=== PATIENT | male | born 1955 | race Native Hawaiian/Other Pacific Islander ===

== ENCOUNTER → 2016-11-26 | Day surgery (SDC) | payer OTHER ==
[~2016-11-26] MED LIST: AMLO5 PO; AMLO5TAB96 PO; ASPI81CH CHEW; BENI20TA5 PO; BENI40TA30 PO; LIDOCAINE HCL 1% PF 30 ML VIAL INFIL ONE; LIDOCAINE HCL 1% PF 30 ML VIAL ONE; METF500T PO; METO25TA6 PO; NITR0.4S SL; OMEG100037 PO; SODIUM BICARBONATE 8.4% INJ 50 ML IV ONE; SODIUM BICARBONATE 8.4% INJ 50 ML ONE; ZOCO40TA PO
[2016-11-26 11:29] VITALS: BP 134/83; PULSE 69; RESP 18; TEMP 97.8; O2SAT 96
--- NOTE | 2016-11-26 12:00 | RADRPT ---
EXAM DATE/TIME: 11/26/2016 09:27 [facility] COMPARISON: No previous studies available for comparison. INDICATIONS : Thyroid nodule on the left. MEDICAL HISTORY : Hypercholesterolemia. Hypertension. Gastroesophageal reflux disease. Diabetes. SURGICAL HISTORY : Herniorrhaphy. EGD. ENCOUNTER: Initial ACUITY: 3 days PAIN SCORE: 0/10 LOCATION: Bilateral neck MEASUREMENTS: RIGHT LOBE: 4.0 x 1.4 x 1.4 cm LEFT LOBE: 4.4 x 2.3 x 2.8 cm FINDINGS: RIGHT LOBE: Multiple hypoechoic areas are seen in the right lobe of the thyroid. Several small l ess than 1 cm nodules are evident. LEFT LOBE: There is a large 4 cm cyst in the left lobe containing debris. This occupies most of the left lobe of the thyroid. ISTHMUS: Normal in size without focal abnormality. CONCLUSION: Large cyst left lobe thyroid associated with scattered smaller cysts and nodules in t he right lobe. The largest cyst on the left will be aspirated. Rustam Tripp MD FACR on November 26, 2016 at 11:57 Board Certified Radiologist. This report was verified electronically.
--- NOTE | 2016-11-26 12:02 | RADRPT ---
EXAM DATE/TIME: 11/26/2016 09:40 [facility] COMPARISON: No previous studies available for comparison. INDICATIONS : Left thyroid nodule. MEDICAL HISTORY : Hypercholesterolemia. Hypertension. Gastroesophageal reflux disease. Diabetes. SURGICAL HISTORY : Herniorrhaphy. EGD. ENCOUNTER: Initial ACUITY: 3 days PAIN SCORE: 0/10 LOCATION: Left neck ORGAN: Left thyroid lobe SPECIMENS: Three fine needle aspirate(s) submitted for pathologic evaluation. DEVICE: 22 gauge needle Post procedure scanning reveals no hematoma or other complication. The possibility does exist that the tissue obtained will be non-diagnostic. If the sample is non-antonieta gnostic a repeat biopsy or surgical biopsy may need to be performed. TECHNIQUE: 1. Ultrasound guidance for needle biopsy. 2. Needle biopsy. The risks, benefits, and alternatives to ultrasound guided needle biopsy were explained to the patien t in detail including the risk of bleeding and infection. Written and verbal informed consent was ob tained. With the patient on the ultrasound table, images were obtained. Overlying skin was prepped and drape d in the usual sterile fashion and Lidocaine was utilized as a local anesthetic. Under direct ultrasound guidance the cyst in the left lobe was aspirated and submitted for pathologic evaluation. Fluid is dark and viscous and appears to be old hemorrhage. The patient tolerated the procedure well and left the ultrasound suite in stable condition. CONCLUSION: Uncomplicated ultrasound guided needle aspiration and biopsy. Pathology is pending.. Rustam Tripp MD FACR on November 26, 2016 at 11:59 Board Certified Radiologist. This report was verified electronically.
== END | disposition home or self-care (01) ==
LOC: HRAD 09:00 → MERGE 09:00
DX: E04.1 Nontoxic single thyroid nodule (principal); E78.00 Pure hypercholesterolemia, unspecified; I10 Essential (primary) hypertension; K21.9 Gastro-esophageal reflux disease without esophagitis; E11.9 Type 2 diabetes mellitus without complications
CPT/HCPCS: 10022; 76536; 76942; 88172; 88173

== ENCOUNTER → 2016-11-26 | Outpatient (CLI) | payer OTHER ==
[~2016-11-26] MED LIST changes: -LIDOCAINE HCL 1% PF 30 ML VIAL INFIL ONE; -LIDOCAINE HCL 1% PF 30 ML VIAL ONE; -SODIUM BICARBONATE 8.4% INJ 50 ML IV ONE; -SODIUM BICARBONATE 8.4% INJ 50 ML ONE
[2016-11-26 11:18] LABS: FREE T3 2.65 PG/ML (2.18-3.98); FREE T4 1.22 NG/DL (0.76-1.46)
== END ==
LOC: CLAB 10:16
DX: E03.9 Hypothyroidism, unspecified (principal)
CPT/HCPCS: 36415; 84439; 84443; 84481

== ENCOUNTER → 2016-12-03 | Day surgery (SDC) | payer OTHER ==
[~2016-12-03] MED LIST changes: +LIDOCAINE HCL 1% PF 30 ML VIAL ONE; +SODIUM BICARBONATE 8.4% INJ 50 ML ONE
--- NOTE | 2016-12-03 11:40 | RADRPT ---
EXAM DATE/TIME: 12/03/2016 10:27 [facility] COMPARISON: No previous studies available for comparison. INDICATIONS : Palpable mass. MEDICAL HISTORY : Hypercholesterolemia. Hypertension. Gastroesophageal reflux disease. Diabetes. SURGICAL HISTORY : Hemorrhoidectomy. Herniorrhaphy. EGD. ENCOUNTER: Subsequent ACUITY: 1 week PAIN SCORE: 10 LOCATION: Left neck FLUID: Total volume of 40 cc of cloudy, red fluid was removed. Fluid was sent to lab for ordered studies. Post procedure scanning reveals no hematoma or other complication. TECHNIQUE: 1. Ultrasound guidance for needle aspiration. 2. Aspiration. The risks, benefits, and alternatives to ultrasound guided aspiration were explained to the patient i n detail including the risk of bleeding and infection. Written and verbal informed consent was obtai belgica. Under direct ultrasound guidance 40 cc of cloudy hemorrhagic fluid were removed and sent to lab for c ytology. Followup ultrasound reveals minimal residual mass suggesting a colloid cyst. CONCLUSION: Uncomplicated ultrasound guided aspiration. Cytology is pending. Rustam Tripp MD FACR on December 03, 2016 at 11:30 Board Certified Radiologist. This report was verified electronically.
== END | disposition home or self-care (01) ==
LOC: HRAD 10:06
PROVIDERS: ATTEND Radiology Body Imaging
DX: E04.1 Nontoxic single thyroid nodule (principal); E78.00 Pure hypercholesterolemia, unspecified; I10 Essential (primary) hypertension; K21.9 Gastro-esophageal reflux disease without esophagitis
CPT/HCPCS: 10160; 76942

== ENCOUNTER → 2017-03-03 | Outpatient (CLI) | payer OTHER ==
[~2017-03-03] MED LIST changes: -LIDOCAINE HCL 1% PF 30 ML VIAL ONE; -SODIUM BICARBONATE 8.4% INJ 50 ML ONE
[2017-03-03 08:51] LABS: ANION GAP 6 MEQ/L (5-15); AST (GOT) 17 U/L (15-37); BICARBONATE 30.9 MEQ/L (21.0-32.0); BLOOD UREA NITROGEN 14 MG/DL (7-18); CHLORIDE 102 MEQ/L (98-107); GLOMERULAR FILTRATION RATE 70 ML/MIN (>89); GLUCOSE,FASTING 109 MG/DL (74-99); POTASSIUM 4.2 MEQ/L (3.5-5.1); SODIUM (NA) 139 MEQ/L (136-145)
[2017-03-03 08:55] LABS: ALKALINE PHOSPHATASE 63 U/L (45-117); ALT (GPT) 22 U/L (12-78); HDL CHOLESTEROL 42.4 MG/DL (40.0-60.0); LDL CHOLESTEROL 72 MG/DL (0-99)
[2017-03-03 09:03] LABS: CREATINE KINASE 87 U/L (39-308)
[2017-03-03 16:57] LABS: HEMOGLOBIN A1a 0.8 %; HEMOGLOBIN A1b 1.9 %; HEMOGLOBIN Ao 84.7 %; HEMOGLOBIN LA1C 1.9 %; HEMOGLOBIN P3 3.9 %
== END ==
LOC: CLAB 08:06
DX: E78.5 Hyperlipidemia, unspecified (principal); Z79.899 Other long term (current) drug therapy
CPT/HCPCS: 36415; 80053; 80061; 82550; 83036

== ENCOUNTER → 2017-03-04 | Outpatient (CLI) | payer OTHER ==
[~2017-03-04] MED LIST changes: +IOHEXOL 350 MG/ML 10 ML VIAL (for RAD DIAG) IV ONE; +METOPROLOL TARTRATE 5 MG/5 ML VIAL ONE; +NITROGLYCERIN 0.4 MG SL 25 TABS/BTL SL ONE
[2017-03-04 14:18] VITALS: BP 145/80; PULSE 75
[2017-03-04 14:23] VITALS: BP 140/82; PULSE 68
[2017-03-04 14:30] VITALS: BP 139/75; PULSE 66
[2017-03-04 14:35] VITALS: BP 138/74; PULSE 66
[2017-03-04 14:40] VITALS: BP 140/72; PULSE 70
[2017-03-04 14:45] VITALS: BP 138/73; PULSE 73
--- NOTE | 2017-03-04 17:15 | RADRPT ---
EXAM DATE/TIME: 03/04/2017 14:36 [facility] Corrected on: March 14, 2017; Corrected Ordering MD to Rustam Tripp MD [facility] COMPARISON: CT THORAX W/O CONTRAST, February 25, 2016, 8:22. INDICATIONS : Cardiac disease. IV CONTRAST: 80 cc Omnipaque 350 (iohexol) IV RADIATION DOSE: 17.18 CTDIvol (mGy) MEDICAL HISTORY : Hypertension. SURGICAL HISTORY : None. ENCOUNTER: Initial ACUITY: 1 day PAIN SCALE: 0/10 LOCATION: Bilateral chest TECHNIQUE: Volumetric scanning was obtained through the heart. Images were acquired on a multislice multiple ro w detector helical scanner timed for acquisition during peak arterial contrast. Images were reconstr ucted using a retrospective gating algorithm including single sector and multi-sector algorithms at m ultiple phases of the cardiac cycle. Images were interpreted using a combination of 2D and 3D visual ization modes including curved planar reformation, thin slab maximum intensity projection and volume rendering. Using automated exposure control and adjustment of the mA and/or kV according to patient size, radiation dose was kept as low as reasonably achievable to obtain optimal diagnostic quality im ages. FINDINGS: VESSEL ANALYSIS: DOMINANCE: The coronary system is right coronary dominance the RCA is small. LEFT MAIN: Left main is patent without calcification or stenosis. LAD: Rapidly bifurcates into a large ramus with large diagonals. There is both intrinsic and extrins ic calcified plaque in the ramus. There is no significant plaquing in the LAD. CIRCUMFLEX: Circumflex branches early from a left main. Extrinsic proximal calcific plaque is present witho ut soft component. RCA: The RCA is small there is small focal area of calcification. Minimal intrinsic soft plaque in the proximal descending portion of the right coronary artery. Ventricular size is appropriate without pericardial effusion. Stable small 1 cm nodule is seen in the left lower lobe. CONCLUSION: 1. Small right coronary in this right coronary dominance individual minimal calcified extrinsic plaqu e proximal descending portion with minimal soft component. 2. Short left main with extrinsic calcific plaque no soft component not felt to be significant. 3. Early bifurcating LAD with the large ramus containing both intrinsic and extrinsic plaque. There is soft tissue component approximately as well thought to be significant. 4. Findings have been discussed with the patient. Rustam Tripp MD FACR on March 04, 2017 at 16:47 Board Certified Radiologist. This report was verified electronically Board Certified Radiologist. This report was verified electronically.
== END ==
LOC: HRAD 13:41
PROVIDERS: ATTEND Radiology Body Imaging
DX: I25.10 Atherosclerotic heart disease of native coronary artery without angina pectoris (principal)
CPT/HCPCS: 75574; Q9967

== ENCOUNTER 2017-03-23 10:00 | Day surgery (SDC) | payer OTHER ==
[~2017-03-23] VITALS: Ht 167.6 cm; Wt 78.1 kg
[2017-03-23] VITALS (10 sets, daily range): BP systolic 107–155; BP diastolic 72–90; PULSE 55–74; RESP 16–19; TEMP 97.8–98; O2SAT 96–99
[~2017-03-23 10:00] MED LIST changes: -AMLO5 PO; -ASPI81CH CHEW; -BENI20TA5 PO; -IOHEXOL 350 MG/ML 10 ML VIAL (for RAD DIAG) IV ONE; -METF500T PO; -METO25TA6 PO; -METOPROLOL TARTRATE 5 MG/5 ML VIAL ONE; -NITR0.4S SL; -NITROGLYCERIN 0.4 MG SL 25 TABS/BTL SL ONE
[2017-03-23] MEDS ORDERED: ASPIRIN 325 MG TAB PO SCH (10:30)
[2017-03-23] MEDS ORDERED: NS 1000P @30 MLS/HR (KVO) IV SCH (10:30)
[2017-03-23] MEDS ORDERED: AMLO5 PO (10:47)
[2017-03-23] MEDS ORDERED: NITR0.4S SL (10:47)
[2017-03-23] MEDS ORDERED: ZOCO40TA PO (10:47)
[2017-03-23] MEDS ORDERED: BENI20TA5 PO (10:47)
[2017-03-23] MEDS ORDERED: ASPI81CH CHEW (10:47)
[2017-03-23] MEDS ORDERED: METF500T PO (10:47)
[2017-03-23] MEDS ORDERED: METO25TA6 PO (10:47)
[2017-03-23 10:57] LABS: AUTOMATED NEUTROPHIL # 4.1 TH/MM3 (1.8-7.7); BASOPHIL % 0.5 % (0.0-2.0); EOSINOPHIL # 0.6 TH/MM3 (0-0.4); EOSINOPHIL % 8.9 % (0.0-4.0); HEMATOCRIT 43.5 % (39.0-51.0); HEMO FLAGS DIFF FINAL; LYMPH % 26.1 % (9.0-44.0); LYMPHOCYTE # 1.8 TH/MM3 (1.0-4.8); MEAN CELL VOLUME 82.3 FL (80.0-100.0); MEAN CORPUSCULAR HEMOGLOBIN 27.6 PG (27.0-34.0); MEAN CORPUSCULAR HGB CONC 33.5 % (32.0-36.0); MONO % 6.1 % (0.0-8.0); NEUT % 58.4 % (16.0-70.0); PLATELET COUNT 277 TH/MM3 (150-450); RED BLOOD COUNT 5.29 MIL/MM3 (4.50-5.90); RED CELL DISTRIBUTION WIDTH 13.9 % (11.6-17.2); WHITE BLOOD COUNT 7.1 TH/MM3 (4.0-11.0)
[2017-03-23 11:03] LABS: APTT (PATIENT) 27.1 SEC (24.3-30.1); PROTHROMBIN TIME - PATIENT 10.5 SEC (9.8-11.6)
[2017-03-23 11:19] LABS: BICARBONATE 31.1 MEQ/L (21.0-32.0); POTASSIUM 3.6 MEQ/L (3.5-5.1)
[2017-03-23] MEDS ORDERED: IOHEXOL 350 MG/ML 100 ML BTL (for Cath Lab) OTHER ONE (12:11)
[2017-03-23] MEDS ORDERED: IOHEXOL 350 MG/ML 50 ML BTL (for Cath Lab) OTHER ONE (12:11)
[2017-03-23] MEDS ORDERED: HEPARIN-NS/PF INJ 500 ML ONE (12:17)
[2017-03-23] MEDS ORDERED: diphenhydrAMINE HCL 50 MG/ML VIAL ONE (12:21)
[2017-03-23] MEDS ORDERED: MIDAZOLAM HCL 2 MG/2 ML VIAL ONE (12:22)
--- NOTE | 2017-03-23 12:25 | EKG ---
Date Performed: 03/23/2017 Time Performed: 10:45:04 PTAGE: 61 years EKG: Sinus bradycardia Extensive T wave changes are nonspecific Borderline ECG PREVIOUS TRACING : 05/13/2009 09.04 No significant change from previous tracing noted. DOCTOR: Flaco Baptiste Interpretating Date/Time 03/23/2017 12:24:17
[2017-03-23] MEDS ORDERED: HEPARIN SODIUM - IV 10,000 UNITS/10 ML VIAL ONE ×2 (12:26→14:28)
[2017-03-23] MEDS ORDERED: PRASUGREL 10 MG TAB ONE (13:28)
[2017-03-23] MEDS ORDERED: BIVALIRUDIN 250 MG VIAL ONE ×2 (13:29→14:33)
[2017-03-23] MEDS ORDERED: VERAPAMIL HCL 5 MG/2 ML VIAL ONE (14:31)
[2017-03-23] MEDS: SODIUM CHLOR 0.9% 1000 ML INJ 1,000 ML IV SCH (16:00)
--- NOTE | 2017-03-23 16:36 | MA ---
cc: RUSS KENNEDY M.D., WAFIK F. M.D. DATE 03/23/2017 Cardiac catheterization / intervention DATE OF 1955 PROCEDURE 1. Left heart catheterization. 2. Coronary arteriogram. 3. Left ventriculogram. 4. Percutaneous transluminal balloon angioplasty followed by stenting of a distal 99% left circumflex lesion using 3.0 x 15 mm drug-eluting Resolute stent reducing it 0% disease residual, followed by stenting of the proximal left circumflex 85-90% lesion using a 3.5 x 15 mm drug-eluting Resolute stent reducing it to 0% residual angiographically. 5. Percutaneous transluminal rotational atherectomy of a calcified mid 90% right coronary artery disease using a 1.5 bur reducing it to 60% residual then stenting using a 3.0 x 15 mm drug-eluting Resolut stent reducing the stenosis to 0% angiographically. 6. Intravascular sound evaluation post stenting of the left circumflex. 7. Intravascular sound evaluation post stenting of the RCA. 8. Right femoral arteriogram. 9. Right femoral arteriotomy site closure using a StarClose device. [employer]STATE PORTFOLIO MANAGER Olimpia Wolff MD TOMATO PASTE MAKER Lidia Richard, RT. INDICATIONS Progressive unstable angina with a CT angiogram of his coronaries revealing tight mid RCA and distal circumflex disease. Because of his persistent symptoms despite beta-blockers and nitrates he was advised to proceed with cardiac catheterization and possible intervention as needed. EQUIPMENT USED 6-Lithuanian short sheath. 0.035 J guidewire. 6-Lithuanian JL-4, JR-4 and pigtail diagnostic catheters. 6-Lithuanian XB 3.5 guide with no side holes. A 0.014 ATW long marker wire. A 2.5 x 12 mm Quantum noncompliant balloon. A 3.00 x 15 mm drug-eluting Resolute stent x2. A 3.5 x 15 mm drug-eluting Resolute stent. A 2.0 x 12 mm NC Euphora balloon used to attempt to cross the RCA lesion however, it did not. A 1.5 x 6 mm Sprinter balloon, also did not cross the right coronary lesion. A 1.5 rotation atherectomy bur. Intravascular ultrasound catheter from [employer]. PROCEDURE DETAILS After obtaining informed consent the right groin was prepped in the usual sterile fashion. 15 cc of 1% lidocaine were used for local anesthesia. Using the modified Seldinger technique, right femoral artery was cannulated and a 6-Lithuanian short sheath was inserted in the right femoral artery. Using the above-mentioned diagnostic catheters selective coronary angiograms were performed. This was followed by left ventriculogram performed in the WERNER view with 30 degree angle. Then this was followed by revascularization of the left circumflex, then revascularization of the RCA of which separate descriptions will follow. At the end of the procedure right femoral system was injected revealing no significant disease and a StarClose device was applied achieving adequate hemostasis. The patient tolerated the procedure well without acute complication at the time of dictation. CARDIAC CATHETERIZATION FINDINGS HEMODYNAMIC RESULTS Aortic pressure was 140/80 mmHg. Mean aortic pressure was 100 mmHg. There was no gradient across aortic valve. Left ventricle end-diastolic pressure was 24 mmHg. CORONARIES Left main artery was left sinus of Valsalva. This had minimal irregularities of less than 5%. Left circumflex artery branched from the left main artery and this was a codominant vessel. It gave a high OM branch that had an ostial 20% then diffuse 30-40% proximal to mid disease. The circumflex in the proximal to mid area there was an 85-90% concentric disease then it trifurcated to an AV groove and the circumflex proper and a PLV branch. The PLV branch had diffuse irregularities of 20-30%. The AV groove had also diffuse irregularities of less than 20%. The circumflex had 20-30% disease just distal to the trifurcation and then 99% occlusion, and distally it had diffuse plaque ranging between 20-30% and then it gave a PLV and PDA arteries with mild diffuse irregularities of less than 20%. Left anterior descending artery branched from the left main artery, had mild diffuse irregularities of 20-30%. It gave diagonal septal branches with mild luminal irregularities of less than 20%. Right coronary was from right sinus of Valsalva. This had a 50% proximal disease and 95-98% mid calcified RCA disease. Distally it gave a PDA and a minute PLV artery with mild diffuse regularities of less than 20%. A mid RV branch had mild luminal irregularities of less than 20%. Left ventriculogram showed normal wall motion, normal systolic function. Ejection fraction visual estimate is around 65%. CONCLUSION OF THE CARDIAC CATHETERIZATION 1. Minimal irregularities of the left main. 2. Mild disease of the left anterior descending artery. 3. Tight mid to distal circumflex disease and significant concentric proximal / mid circumflex disease, stented in this procedure. 4. Tight heavily calcified mid RCA disease dealt with rotational atherectomy and stenting in this procedure. 5. Codominant left circumflex / RCA system. 6. Normal left ventricle systolic function. 7. Elevated left ventricular end-diastolic pressure. It was decided then to proceed with revascularization of the left circumflex. I did discuss the anatomy with Mr. Eugene and offered him three-vessel bypass versus percutaneous intervention with stenting and he opted to proceed with stenting. REVASCULARIZATION OF THE LEFT CIRCUMFLEX An XB 3.5 6-Lithuanian guide was advanced cannulating the left main. Then a 0.014 ATW long marker wire was advanced and placed in the distal PLV branch of the left circumflex. Then a 2.5 x 12 mm of Quantum balloon was advanced and one inflation in the distal disease up to 12 atmospheres reducing the stenosis to 40% residual. The same balloon was used to inflate the proximal / mid disease with one inflation up to 14 atmospheres reducing the stenosis to 40% residual after which the distal lesion was stented using a 3.0 x 15 mm drug-eluting stent inflated to 14 atmospheres. The proximal / mid lesion was stented using a 3.5 x 15 mm drug-eluting Resolute stent inflated to 14 atmospheres reducing both stenosis to 0 / -10 residual. Intravascular ultrasound evaluation post stenting revealed both stent were well opposed with no distal or proximal edge dissection in either. The minimum diameter of the distal stent was 2.8 mm and the minimum diameter of the proximal stent was 3.4 mm and good symmetry and we decided to accept these results. The wire was then withdrawn and the guide and selective angiographic pictures in / WERNER caudal and GERRI caudal were performed revealing excellent angiographic results with MIGUELITO grade III flow in the distal portion of the vessel. REVASCULARIZATION OF THE RIGHT CORONARY ARTERY An FR 4.0 6-Lithuanian guide with no side holes was advanced cannulating the right coronary artery. Then the same 0.014 ATW long marker wire was advanced and placed in the PDA of the RCA. However I could not cross the mid lesion with the same 2.5 x NC Quantum balloon or with a new balloon that was a 2.0 x 12 NC Euphora or even with a 1.5 x 6 Sprinter compliant balloon after which I decided to proceed with rotation atherectomy because of evidence of calcification. A Rota C floppy wire was advanced and placed in the PDA of the RCA and the ATW wire was then withdrawn. One rotational atherectomy run with a 1.5 bur for 10 seconds with RPMs running between 132-143,000 per minute was performed reducing the stenosis to 50-60% residual, after which a 3.0 x 15 mm drug-eluting Resolute stent was deployed achieving good results with 0% residual angiographic stenosis. Intravascular ultrasound evaluation of the lesion revealed that the stent was well deployed with no distal or proximal edge dissection and good symmetry with minimal diameter of 2.9 mm and it was decided to accept these results. The wire was then withdrawn in the guide and selective angiographic pictures both GERRI cranial and WERNER cranial views were obtained revealing excellent angiographic results with MIGUELITO grade III flow distally. Mr. Eugene tolerated the procedure well without acute complication at the time of dictation. MD SHA Gonzalez/SACHIN /3:33 PM /3:53 PM
[2017-03-23] MEDS ORDERED: ONDANSETRON HCL 4 MG/2 ML VIAL ONE (18:35)
[2017-03-23] MEDS: glipiZIDE 5 MG TAB PO SCH (21:00)
[2017-03-23] MEDS ORDERED: ATORVASTATIN 80 MG TAB PO SCH (21:00)
[2017-03-23] MEDS ORDERED: DEXTROSE 50% IN WATER 50 ML VIAL(D50) IV PUSH PRN (23:30)
[2017-03-23] MEDS ORDERED: GLUCAGON 1 MG/ML VIAL OTHER PRN (23:30)
[2017-03-24] VITALS (9 sets, daily range): BP systolic 133–143; BP diastolic 77–78; PULSE 16–72; RESP 16; TEMP 98.2–98.5; O2SAT 97
[2017-03-24] MEDS: SODIUM CHLOR 0.9% 1000 ML INJ 1,000 ML IV SCH (01:00)
[2017-03-24 06:25] LABS: AUTOMATED NEUTROPHIL # 6.4 TH/MM3 (1.8-7.7); BASOPHIL % 0.2 % (0.0-2.0); EOSINOPHIL # 0.3 TH/MM3 (0-0.4); HEMATOCRIT 39.8 % (39.0-51.0); HEMO FLAGS DIFF FINAL; LYMPH % 15.5 % (9.0-44.0); LYMPHOCYTE # 1.3 TH/MM3 (1.0-4.8); MEAN CORPUSCULAR HGB CONC 34.1 % (32.0-36.0); MONO % 6.3 % (0.0-8.0); PLATELET COUNT 256 TH/MM3 (150-450); RED BLOOD COUNT 4.85 MIL/MM3 (4.50-5.90); RED CELL DISTRIBUTION WIDTH 14.2 % (11.6-17.2); WHITE BLOOD COUNT 8.6 TH/MM3 (4.0-11.0)
[2017-03-24 06:47] LABS: BICARBONATE 25.4 MEQ/L (21.0-32.0)
[2017-03-24] MEDS ORDERED: MEDIUM DOSE INSULIN NOVOLOG SUPPLEMENTAL SCALE SQ SCH (07:00)
[2017-03-24] MEDS ORDERED: POTASSIUM CHLORIDE 20 MEQ CONTROLLED RELEASE TAB PO ONE (08:00)
[2017-03-24] MEDS: glipiZIDE 5 MG TAB PO SCH (08:07)
[2017-03-24] MEDS ORDERED: amLODIPine BESYLATE 5 MG TAB PO SCH (09:00)
[2017-03-24] MEDS ORDERED: LOSARTAN 50 MG TAB PO SCH (09:00)
[2017-03-24] MEDS ORDERED: ASPIRIN EC 81 MG TABEC PO SCH (09:00)
[2017-03-24] MEDS ORDERED: PRASUGREL 10 MG TAB PO SCH (09:00)
--- NOTE | 2017-03-24 13:55 | EKG ---
Date Performed: 03/24/2017 Time Performed: 06:10:16 PTAGE: 61 years EKG: Sinus rhythm Right ventricular hypertrophy Extensive ST-T changes may be due to hypertrophy and/or ischemia Prince red to prior tracing no significant change Abnormal ECG PREVIOUS TRACING : 03/23/2017 17.32 DOCTOR: Mirtha Naik Interpretating Date/Time 03/24/2017 13:49:02
--- NOTE | 2017-03-24 13:56 | EKG ---
Date Performed: 03/23/2017 Time Performed: 17:32:36 PTAGE: 61 years EKG: Sinus bradycardia Extensive ST-T changes are nonspecific Compared to prior tracing no signi ficant change Borderline ECG PREVIOUS TRACING : 03/23/2017 10.45 DOCTOR: Mirtha Naik Interpretating Date/Time 03/24/2017 13:49:19
--- NOTE | 2017-03-25 13:26 | CATHPROC ---
[facility] HIS Report Study Information Study Number Admission Scheduled Start Study Start [id number] Mar 23 2017 10:00AM 03/23/2017 Mar 23 2017 11:55AM [place] Service Cardiac Catheterization Admit Source Facility Department Other [facility] - Mess Attendant Physician and Clinical Staff Initial MD Estrada, Tarun Project Accountant Kenny Blanca RN Other cathlab, cathlab Other Siobhan Blackman BSRN Recorder Tatiana Golden,FINANCE VICE PRESIDENT TECH2 Scrub Lidia Ray RCIS TECH2 Procedures Performed Procedure Location (Site) Vessel Name Coronary Angiograms LCA Left Coronary Coronary Angiograms RCA Right Coronary Drug Eluting Inflatio CIRC Dist CIRC Drug Eluting Inflatio CIRC Mid CIRC Drug Eluting Inflatio RCA Mid Right Coronary IVUS RCA Right Coronary IVUS CIRC Mid CIRC L Heart Cath LV Gram-hand inj. LV LV Ventricle PTCA CIRC Dist CIRC PTCA CIRC Mid CIRC PTCA ADD ON'S Rotablator RCA Mid Right Coronary Wire insertion Fem Art (right) Femoral Art Equipment Time Fish Machine Feeder Description Size Mfg Part Number Used/Scraped STARCLOSE, VASCULAR CLOSER [id number] 15:07 [employer] FR 6 Used SYSTEM *[id number] TRANSDUCER, TRUWAVE [id number] 12:20 BELCHER BYRD * Used W/STOCKCOCK *[id number] 14:36 BOSTON SCIENTIFIC ADVANCER * [id number] Used BALLOON, 2.5 12[place] [id number] 13:34 BOSTON SCIENTIFIC 2.5 12MM Used QUANTUM APEX MR *[id number] 14:36 [employer]ON SCI[employer] CATHETER, FR1.5 ROTA-LINK FR 1.5 Used *[id number] 64606-532 14:28 [employer]ON SCI[employer] WIRE, ROTA-WIRE FLOPPY 330CM 330CM Used *[id number] *[id number] [phone] *8243010 [id number] *[id number] PIGTAIL ANG. 145 INFINITI [id number] CATHETER *[id number] *[id number] [phone] *[id number] [id number] 12:20 Mashups INDUSTRIES PACK, CCL CUSTOM * Used *[id number] 12:20 Mashups PACER PEN, SKIN DUAL W/ RULER * Used *[id number] [id number] 14:26 MEDTRONIC BALLOON, 1.5 X 6MM SPRINTER 6MM Used *[id number] BALLOON, 2.0 X 12MM NC [id number] 14:13 MEDTRONIC 12MM Used EUPHORA *[id number] STENT, 3.0 15 RESOLUTE [id number] 13:45 MEDTRONIC 3.0 15 Used INTEGRITY RX *[id number] STENT, 3.0 15 RESOLUTE [id number] 14:53 MEDTRONIC 3.0 15 Used INTEGRITY RX *[id number] STENT, 3.5 15 RESOLUTE [id number] 13:51 MEDTRONIC 3.5 15 Used INTEGRITY RX *[id number] [id number] 13:27 Brille24 MEDICAL 30 ABAD INDEFLATOR Used *1464882 [id number] 12:20 [email or web address] SHEATH, FR6.5 PRELUDE 11CM FR 6.5 038ACT Used *8943090 [id number] 12:20 [email or web address] WIRE, 3MMJ .035 180CM 180CM Used *1216951 [id number] 12:20 NAMIC MANIFOLD, 4 PORT * Used *[id number] 12:20 NYCOMED OMNIPAQUE, 350 MG, 150ML 150ML [id number] Used [id number] 12:20 [employer] BLANKET,WARM AIR CCL * Used *[id number] CATHETER, SAUK-SUIATTLE EYE QAGAN TAYAGUNGIN [id number] 13:56 [employer]OL[employer]O Used IMAGING *7644016 Equipment Model, Serial, Lot Number and Expiration Data Description Model Number Serial Number Lot Number Expiration Date BALLOON, 2.0 X 12MM NC [id number] 10-14-2018 EUPHORA BALLOON, 2.5 12MM NC QUANTUM [id number] 05-02-2018 APEX MR CATHETER, SAUK-SUIATTLE EYE QAGAN TAYAGUNGIN [id number] 11-30-2018 IMAGING STENT, 3.0 15 RESOLUTE [id number] 12-19-2018 INTEGRITY RX STENT, 3.0 15 RESOLUTE [id number] 09-06-2018 INTEGRITY RX STENT, 3.5 15 RESOLUTE [id number] 07-27-2018 INTEGRITY RX WIRE, ROTA-WIRE FLOPPY 330CM [id number] 05-28-2017 History: Current Medications Medication Dosage/Unit Route Frequency Last Date/Time Taken ASA NORVASC Glucophage NTG SL Statins (any) History: Allergies Allergy Reaction Hydrochlorothiazide Itching Lisinopril Itching Sulfa Itching History: Risk Factors Family History of Hypertension Dyslipidemia Previous [place] Previous Heart Failure Premature CAD Yes Yes Yes No No Prior Valve Prior PCI Prior CABG Surgery No No No Cerebrovascular Peripheral Artery Chronic Lung On Dialysis Diabetes Disease Disease Disease No No No No Yes History: Symptoms/Diagnosis Selection Items Chest pain History: Stress Tests Stress or Imaging Studies Performed Yes Standard Exercise Stress Test No Stress Echo No Stress Test SPECT No Stress Test CMR Stress Test CMR Result Yes Indeterminant Cardiac CTA Coronary Calcium Score No No History: Other Disease Selection Items HTN History: Other Current Smoker No Labs Hgb (g/dl) Hct (%) RBC (MIL/MM3) WBC (l/cumm) Platelets (thousands) 12.00-18.00 37.00-55.00 4.80-6.20 4.80-10.80 140.00-450.00 14.6 43.5 5.2 7.1 277 Glucose (mg/dl) BUN (mg/dl) Creatinine (mg/dl) BUN:Creatinine (1:x) 60.00-110.00 8.00-20.00 0.10-9.00 10.00-20.00 114 13 0.9 14.4 Na (meq/l) K (meq/l) Cl (meq/l) CO2 (mmol/L) Ca (mg/dl) 138.00-146.00 3.80-5.10 101.00-111.00 23.00-30.00 9.00-10.50 140 3.6 103 31.1 8.6 PT (sec) PTT (sec) INR (PTT:PT) 9.40-11.40 25.10-32.70 0.50-2.00 10.5 27.1 1 Medication Medication Total Dose (Bolus/Oral) Medication Total Dosage/Unit 1% XYLOCAINE 20 mL ANGIOMAX BOLUS 11 mL BENADRYL 25 mg EFFIENT 60 mg FENTANYL 100 mcg HEPARIN 1000 units NTG (IC) 1050 mcg Medications (Bolus/Oral) Medication Time Given Dosage/Unit Administered By Reason BENCHAYORYL 03/23/2017 1:08:14 PM 25 mg Kenny Blanca 25 mg BENADRYL given in lab by Kenny Blanca RN in Left Antecubital via Peripheral IV. Ordered by Tarun Armstrong. FENTANYL 03/23/2017 1:09:15 PM 50 mcg Kenny Blanca 50 mcg FENTANYL given in lab by Kenny Blanca RN in Left Antecubital via Peripheral IV. Ordered by Tarun Estrada. FENTANYL 03/23/2017 1:10:29 PM 50 mcg Kenny Blanca 50 mcg FENTANYL given in lab by Kenny Blanca RN in Left Antecubital via Peripheral IV. Ordered by Tarun Estrada. 1% XYLOCAINE 03/23/2017 1:10:33 PM 20 mL Tarun Estrada 20 mL 1% XYLOCAINE given in lab by Tarun Estrada in Right Groin via Subcutaneous. Ordered by Tarun Estrada. HEPARIN 03/23/2017 1:14:00 PM 1000 units Tarun Estrada 1000 units HEPARIN given in lab by Tarun Estrada in Right Groin via Intra-arterial. Ordered by Tarun [place]ataya. NTG (IC) 03/23/2017 1:16:34 PM 50 mcg Tarun Estrada 50 mcg NTG (IC) given in lab by Tarun Estrada in Right Groin via Intra-coronary. Ordered by Tarun Estrada. EFFIENT 03/23/2017 1:29:31 PM 60 mg Kenny Blanca 60 mg EFFIENT given in lab by Kenny Blanca RN in Per mouth via Oral. Ordered by Tarun Estrada. ANGIOMAX BOLUS 03/23/2017 1:32:48 PM 11 mL Kenny Blanca 11 mL ANGIOMAX BOLUS given in lab by Kenny Blanca RN in Left Antecubital via Peripheral IV. Ordere d by Tarun Estrada. NTG (IC) 03/23/2017 1:43:10 PM 150 mcg Tarun Estrada 150 mcg NTG (IC) given in lab by Tarun Estrada in Right Groin via Intra-coronary. Ordered by Tarun Estrada. NTG (IC) 03/23/2017 1:55:28 PM 100 mcg Tarun Estrada 100 mcg NTG (IC) given in lab by Tarun Estrada in Right Groin via Intra-coronary. Ordered by Tarun Estrada. NTG (IC) 03/23/2017 2:01:01 PM 100 mcg Tarun Estrada 100 mcg NTG (IC) given in lab by Tarun Estrada in Right Groin via Intra-coronary. Ordered by Tarun Estrada. NTG (IC) 03/23/2017 2:11:55 PM 100 mcg Tarun Estrada 100 mcg NTG (IC) given in lab by Tarun Estrada in Right Groin via Intra-coronary. Ordered by Tarun Estrada. NTG (IC) 03/23/2017 2:19:24 PM 100 mcg Tarun Estrada 100 mcg NTG (IC) given in lab by Tarun Estrada in Right Groin via Intra-coronary. Ordered by Tarun Estrada. NTG (IC) 03/23/2017 2:51:56 PM 100 mcg Tarun Estrada 100 mcg NTG (IC) given in lab by Tarun Estrada in Right Groin via Intra-coronary. Ordered by Tarun Estrada. NTG (IC) 03/23/2017 2:56:23 PM 150 mcg Tarun Estrada 150 mcg NTG (IC) given in lab by Traun Estrada in Right Groin via Intra-coronary. Ordered by Tarun Estrada. NTG (IC) 03/23/2017 2:59:15 PM 100 mcg Tarun Estrada 100 mcg NTG (IC) given in lab by Tarun Estrada in Right Groin via Intra-coronary. Ordered by Tarun Estrada. NTG (IC) 03/23/2017 3:02:25 PM 100 mcg Tarun Estrada 100 mcg NTG (IC) given in lab by Tarun Estrada in Right Groin via Intra-coronary. Ordered by Tarun Estrada. Medication (Drip) Medication Time Given Dosage/Unit Concentration/Unit Diluent (ml) Solution ANGIOMAX DRIP 03/23/2017 1:34:14 PM 1.68 mg/kg/hr 250 mg 50 NaCl .9 1.68 mg/kg/hr ANGIOMAX DRIP given in lab by Kenny Blanca RN in Left Antecubital via Peripheral IV. Pump/Drip Flow = 26 ml/hr using NaCl .9 with a concentration of 250 mg in 50 ml. Ordered by Tarun Estrada. IV Solutions 03/23/2017 12:18:25 PM 0 mL (IV) 500 NaCl .9 Patient arrived on IV Solutions given by cathlab, cathlab in Left Antecubital via Peripheral IV. Pump /Drip Flow = 20 ml/hr using NaCl .9. Ordered by Tarun Estrada. IV Solutions 03/23/2017 3:00:01 PM 0 mL (IV) 500 NaCl .9 IV Solutions given in lab by Kenny Blanca RN in Left Antecubital via Peripheral IV. Pump/Drip Flow = 200 ml/hr using NaCl .9. Ordered by Tarun Estrada. Initial Case Assessment Cardiovascular HR NIBP 66 171/107 Edema Present Skin color Skin None Normal Warm Dry Circulatory - Right Pulses Dorsalis Pedis Femoral 2 2 Scale (0,1,2,3,4,d) Circulatory - Left Pulses Dorsalis Pedis Femoral 2 2 Scale (0,1,2,3,4,d) Neurological State Oriented to time-place- Alert Moves all extremities person Respiration - General Respiration Rate SpO2 (%) (B/min) 12 100 Final Case Assessment Cardiovascular HR NIBP 55 137/69 Edema Present Skin color Skin None Normal Warm Dry Circulatory - Right Pulses Dorsalis Pedis Femoral 2 2 Scale (0,1,2,3,4,d) Circulatory - Left Pulses Dorsalis Pedis Femoral 2 2 Scale (0,1,2,3,4,d) Neurological State Oriented to time-place- Alert Moves all extremities person Respiration - General Respiration Rate SpO2 (%) (B/min) 18 97 Chronological Log Time Study Chronological Log 12:11:10 Patient arrived via Bed. 12:11:11 Patient Name, D.O.B, / Armband Verified By R.N. 12:11:12 Consent signed by the physician and the patient and verified by the Mess Attendant staff. 12:18:11 Pre-op and post- op instructions given; patient acknowledges understanding of instructions. Vitals capture started with the following parameters, Patient=Adult, Interval=5 min, Initial Pr knqbyr=608 mmHg, 12:18:13 Deflation Rate=5 mmHg 12:18:17 Patient has been NPO for More than 6Hrs. 12:18:18 Skin Breakdown- 12:18:19 Patient Warmer Placed on the Table. 12:18:21 Annie Prominences Protected 12:18:24 A # 20 IV was noted in the Antecubital (left). Grade = 0 Patient arrived on IV Solutions given by cathlab, cathlab in Left Antecubital via Peripheral IV . Pump/Drip Flow = 20 12:18:25 ml/hr using NaCl .9. Ordered by Tarun Estrada. 12:18:26 History and physical on the chart or being dictated. 12:19:26 HR=64 bpm, DIWY=139/107 mmhg, QtI6=065.0 %, Resp=12 B/min, Pain=0, Kristi=10, Powers=2 12:20:49 Reference ECG taken Assessment: Initial Case, HR=66 BPM, ASZV=447/107 mmhg, Edema=None, Color=Normal, Skin = Warm, Dry Right Pulses: Oscar Ped=2, Femoral=2 12:20:52 Left Pulses: Oscar Ped=2, Femoral=2 Neurological: State=Alert, Ox3, VALENCIA Respiration: Resp=12 B/min, VsG8=439 % 12:23:50 OI=404 bpm, YAAT=623/102 mmhg, SpO2=99.0 %, Resp=15 B/min, Pain=0, Kristi=10, Powers=2 12:28:47 HR=71 bpm, NZDM=651/101 mmhg, SpO2=99.0 %, Resp=18 B/min, Pain=0, Kristi=10, Powers=2 12:29:25 Bilateral groins prepped with 2% chlorhexidine, and with a 3 min. waiting time. 12:32:53 Pressure channel 1 zeroed. 12:33:52 HR=63 bpm, CWGE=488/99 mmhg, SxL4=834.0 %, Resp=13 B/min, Pain=0, Kristi=10, Powers=2 12:38:49 HR=67 bpm, UTLW=390/97 mmhg, SpO2=97.0 %, Resp=13 B/min, Pain=0, Kristi=10, Powers=2 12:43:50 HR=62 bpm, ZPPN=185/100 mmhg, YpR9=771.0 %, Resp=16 B/min, Pain=0, Kristi=10, Powers=2 12:48:51 HR=65 bpm, EVJK=693/93 mmhg, SpO2=99.0 %, Resp=15 B/min, Pain=0, Kristi=10, Powers=2 12:53:52 HR=68 bpm, AZUW=593/105 mmhg, SpO2=99.0 %, Resp=15 B/min, Pain=0, Kristi=10, Powers=2 12:58:51 HR=66 bpm, TNZQ=362/95 mmhg, SpO2=99.0 %, Resp=14 B/min 13:03:52 HR=66 bpm, RTJP=785/97 mmhg, SpO2=99.0 %, Resp=15 B/min, Pain=0, Kristi=10, Powers=2 13:08:14 25 mg BENADRYL given in lab by Kenny Blanca, JOSE in Left Antecubital via Peripheral IV. Or dered by Tarun Estrada. Time Out. Correct patient, correct procedure,correct physician, ,power injector not loaded with contrast with surgical 13:08:47 team present. Time Out Concurred by , individual staff in procedure 13:09:15 50 mcg FENTANYL given in lab by Kenny Blanca, JOSE in Left Antecubital via Peripheral IV. O rdered by Tarun Estrada. 13:09:17 Case Start 13:09:39 HR=78 bpm, PVJO=039/104 mmhg, SpO2=99.0 %, Resp=10 B/min, Pain=0, Kristi=10, Powers=2 13:10:29 50 mcg FENTANYL given in lab by Kenny Blanca RN in Left Antecubital via Peripheral IV. O rdered by Tarun Estrada. 13:10:33 20 mL 1% XYLOCAINE given in lab by Tarun Estrada in Right Groin via Subcutaneous. Ordered by Tarun Estrada. 13:12:26 Access site was Right Femoral Artery. 13:12:36 A SHEATH, FR6.5 PRELUDE 11CM FR 6.5 was advanced into the Fem Art (right) using the Modifie d Seldinger technique. 13:13:55 HR=80 bpm, MOMH=813/101 mmhg, SpO2=97.0 %, Resp=11 B/min, Pain=0, Kristi=10, Powers=2 13:14:00 1000 units HEPARIN given in lab by Tarun Estrada in Right Groin via Intra-arterial. Ordere d by Tarun Estrada. A JL 4.0 INFINITI CATHETER FR 6 was advanced over a wire. OMNIPAQUE, 350 MG, 150ML 150ML was us ed for 13:14:54 injections. 13:16:34 50 mcg NTG (IC) given in lab by Tarun sEtrada in Right Groin via Intra-coronary. Ordered b y Tarun Estrada. Recorded Pressure: Ao, HR=77, Condition=Condition 1 13:16:44 (Aorta) Ao 148/79/107 13:17:49 The LCA was injected and visualized at various angles. OMNIPAQUE, 350 MG, 150ML 150ML used . 13:18:58 HR=72 bpm, GTES=621/83 mmhg, SpO2=96.0 %, Resp=12 B/min, Pain=0, Kristi=10, Powers=2 13:19:28 Catheter was removed A JR 4.0 INFINITI CATHETER FR 6 was advanced over a wire. OMNIPAQUE, 350 MG, 150ML 150ML was us ed for 13:21:09 injections. 13:23:13 The RCA was injected and visualized at various angles. OMNIPAQUE, 350 MG, 150ML 150ML used . 13:23:55 HR=71 bpm, QNDU=346/83 mmhg, SpO2=96.0 %, Resp=13 B/min, Pain=0, Kristi=10, Powers=2 13:24:07 Catheter was removed A PIGTAIL ANG. 145 INFINITI CATHETER FR 6 was advanced over a wire. OMNIPAQUE, 350 MG, 150ML 15 0ML was 13:24:19 used for injections. Recorded Pressure: LV, HR=71, Condition=Condition 1 13:25:26 (Left Ventricle) LV 147/13 13:25:46 The LV was manually injected with 10 cc's and visualized. OMNIPAQUE, 350 MG, 150ML 150ML us ed. Recorded Pressure: LV, Ao, HR=73, Condition=Condition 1 13:26:10 (Left Ventricle) LV 141/2/26, (Aorta) Ao 146/78/108 13:26:37 Catheter was removed 13:27:12 OMNIPAQUE, 350 MG, 150ML 150ML and 30 ABAD INDEFLATOR added. 13:29:31 HR=79 bpm, TJGT=605/98 mmhg, SpO2=95.0 %, Resp=13 B/min, Pain=0, Kristi=10, Powers=2 13:29:31 60 mg EFFIENT given in lab by Kenny Blanca, JOSE in Per mouth via Oral. Ordered by Tarun Estrada. A XB 3.5 GUIDE CATHETER FR 6 was advanced over a wire. OMNIPAQUE, 350 MG, 150ML 150ML was used for 13:30:44 injections. 11 mL ANGIOMAX BOLUS given in lab by Kenny Blanca, JOSE in Left Antecubital via Peripheral IV. Ordered by Sean 13:32:48 Tarun. 13:33:57 HR=69 bpm, FEJR=200/88 mmhg, SpO2=98.0 %, Resp=15 B/min, Pain=0, Kristi=10, Powers=2 13:34:04 A WIRE, ATW MARKER 300CM 300CM was inserted via Fem Art (right). 1.68 mg/kg/hr ANGIOMAX DRIP given in lab by Kenny Blanca, JOSE in Left Antecubital via Peripher al IV. Pump/Drip Flow 13:34:14 = 26 ml/hr using NaCl .9 with a concentration of 250 mg in 50 ml. Ordered by Tarun Estrada. 13:35:29 Interventional wire has crossed the lesion A BALLOON, 2.5 12MM NC QUANTUM APEX MR 2.5 12MM was inserted over WIRE, ATW MARKER 300CM 300CM via the 13:38:36 CIRC Dist. 13:38:58 HR=69 bpm, JJZW=263/83 mmhg, SpO2=97.0 %, Resp=19 B/min, Pain=0, Kristi=10, Powers=2 A BALLOON, 2.5 12MM NC QUANTUM APEX MR 2.5 12MM over a WIRE, ATW MARKER 300CM 300CM in the CIRC Dist 13:39:57 was inflated using a 30 ABAD INDEFLATOR at 12 abad for 10 sec. A BALLOON, 2.5 12MM NC QUANTUM APEX MR 2.5 12MM over a WIRE, ATW MARKER 300CM 300CM in the CIRC Mid 13:42:40 was inflated using a 30 ABAD INDEFLATOR at 14 abad for 30 sec. 13:43:10 150 mcg NTG (IC) given in lab by Tarun Estrada in Right Groin via Intra-coronary. Ordered by Tarun Estrada. 13:43:59 HR=76 bpm, AKLY=954/76 mmhg, SpO2=94.0 %, Resp=19 B/min 13:44:10 Balloon Removed. A STENT, 3.0 15 RESOLUTE INTEGRITY RX 3.0 15 was advanced through a JR 4.0 INFINITI CATHETER FR 6 over a 13:46:22 WIRE, ATW MARKER 300CM 300CM. 13:47:04 A implantable was deployed using a 30 ABAD INDEFLATOR at 12 atmospheres for 10 seconds in th e CIRC Dist. 13:47:40 Delivery device removed 13:48:58 HR=71 bpm, ECGV=128/76 mmhg, SpO2=92.0 %, Resp=15 B/min, Pain=0, Kristi=10, Powers=2 13:51:27 Activated Clotting Time Drawn A STENT, 3.5 15 RESOLUTE INTEGRITY RX 3.5 15 was advanced through a XB 3.5 GUIDE CATHETER FR 6 over a 13:52:16 WIRE, ATW MARKER 300CM 300CM. A STENT, 3.5 15 RESOLUTE INTEGRITY RX 3.5 15 was deployed using a 30 ABAD INDEFLATOR at 14 atmos pheres for 13:53:51 12 seconds in the CIRC Mid. 13:54:01 HR=73 bpm, ZXDC=261/67 mmhg, SpO2=92.0 %, Resp=16 B/min, Pain=0, Kristi=10, Powers=2 13:54:52 Delivery device removed 13:55:28 100 mcg NTG (IC) given in lab by Tarun Estrada in Right Groin via Intra-coronary. Ordered by Tarun Estrada. 13:55:49 ACT (Normal Range 90-180) = 265 13:56:41 An CATHETER, SAUK-SUIATTLE EYE QAGAN TAYAGUNGIN IMAGING was advanced through the lesion. Images saved onto IVUS hard drive 13:59:00 HR=69 bpm, DLFG=202/65 mmhg, SpO2=92 %, Resp=12 B/min, Pain=0, Kristi=10, Powers=2 14:00:01 IVUS in progress using CATHETER, SAUK-SUIATTLE EYE QAGAN TAYAGUNGIN IMAGING 14:00:11 IVUS catheter removed 14:00:24 Wire removed 14:01:01 100 mcg NTG (IC) given in lab by Tarun Estrada in Right Groin via Intra-coronary. Ordered by Tarun Estrada. 14:02:41 A WIRE, 3MMJ .035 180CM 180CM was inserted via Fem Art (right). 14:02:50 Catheter was removed 14:03:59 HR=72 bpm, VIOE=367/66 mmhg, SpO2=91.0 %, Resp=14 B/min, Pain=0, Kristi=10, Powers=2 A JR 4.0 GUIDE CATHETER FR 6 was advanced over a wire. OMNIPAQUE, 350 MG, 150ML 150ML was used for 14:04:45 injections. 14:07:34 A WIRE, ATW MARKER 300CM 300CM was inserted via Fem Art (right). 14:08:58 HR=65 bpm, HXSZ=976/68 mmhg, SpO2=93 %, Resp=16 B/min, Pain=0, Kristi=10, Powers=2 14:09:01 Interventional wire has crossed the lesion A BALLOON, 2.5 12MM NC QUANTUM APEX MR 2.5 12MM was inserted over WIRE, ATW MARKER 300CM 300CM via the 14:09:49 RCA Mid. 14:11:55 100 mcg NTG (IC) given in lab by Tarun Estrada in Right Groin via Intra-coronary. Ordered by Tarun Estrada. 14:12:51 Balloon Removed. 14:14:03 HR=70 bpm, URLG=047/55 mmhg, SpO2=91.0 %, Resp=17 B/min, Pain=0, Kristi=10, Powers=2 14:14:22 A BALLOON, 2.0 X 12MM NC EUPHORA 12MM was inserted over WIRE, ATW MARKER 300CM 300CM via th e RCA Mid. 14:15:01 Activated Clotting Time Drawn 14:19:00 HR=66 bpm, SZJN=570/59 mmhg, SpO2=92.0 %, Resp=14 B/min, Pain=0, Kristi=10, Powers=2 14:19:24 100 mcg NTG (IC) given in lab by Tarun Estrada in Right Groin via Intra-coronary. Ordered by Tarun Estrada. 14:19:39 Balloon Removed. 14:20:40 ACT (Normal Range 90-180) = 278 14:23:16 Balloon Removed. 14:24:01 HR=74 bpm, PHYN=979/62 mmhg, SpO2=94.0 %, Resp=16 B/min, Pain=0, Kristi=10, Powers=2 14:25:07 A BALLOON, 1.5 X 6MM SPRINTER 6MM was inserted over WIRE, ATW MARKER 300CM 300CM via the RC A Mid. 14:29:03 HR=69 bpm, BIEH=620/55 mmhg, SpO2=96.0 %, Resp=15 B/min, Pain=0, Kristi=10, Powers=2 14:30:37 The previous wire was exchanged for a WIRE, ROTA-WIRE FLOPPY 330CM 330CM. 14:33:59 HR=65 bpm, IYFO=361/71 mmhg, SpO2=96.0 %, Resp=17 B/min, Pain=0, Kristi=10, Powers=2 14:37:02 A ADVANCER * was advanced throuogh the catheter into the RCA Mid. 14:39:01 HR=70 bpm, EEMY=865/74 mmhg, SpO2=97.0 %, Resp=20 B/min, Pain=0, Kristi=10, Powers=2 14:44:41 HR=75 bpm, UESK=939/66 mmhg, SpO2=98.0 %, Resp=19 B/min, Pain=0, Kristi=10, Powers=2 A CATHETER, FR1.5 ROTA-LINK FR 1.5 was advanced through the JR 4.0 GUIDE CATHETER FR 6 over a W BRADLEY, ROTA- 14:46:54 WIRE FLOPPY 330CM 330CM. After placement in the RCA Mid the rotoblator was set from 149,000 rpm to 136,000 rpm and was passed 10 times through the lesion. 14:48:55 Wire removed 14:48:58 A WIRE, ATW MARKER 300CM 300CM was inserted via Fem Art (right). 14:49:07 HR=55 bpm, GMTR=552/58 mmhg, SpO2=97.0 %, Resp=15 B/min, Pain=0, Kristi=10, Powers=2 14:50:46 Interventional wire has crossed the lesion 14:51:56 100 mcg NTG (IC) given in lab by Tarun Estrada in Right Groin via Intra-coronary. Ordered by Tarun Estrada. 14:52:23 Activated Clotting Time Drawn 14:54:02 HR=54 bpm, APXX=986/55 mmhg, SpO2=95.0 %, Resp=15 B/min, Pain=0, Kristi=10, Powers=2 A STENT, 3.0 15 RESOLUTE INTEGRITY RX 3.0 15 was advanced through a JR 4.0 GUIDE CATHETER FR 6 over a WIRE, 14:55:27 ATW MARKER 300CM 300CM. 14:56:23 150 mcg NTG (IC) given in lab by Tarun Estrada in Right Groin via Intra-coronary. Ordered by Tarun Estrada. A STENT, 3.0 15 RESOLUTE INTEGRITY RX 3.0 15 was deployed using a 30 ABAD INDEFLATOR at 14 atmos pheres for 14:57:43 11 seconds in the RCA Mid. 14:58:34 Delivery device removed 14:59:03 HR=55 bpm, VMTJ=246/55 mmhg, SpO2=95.0 %, Resp=13 B/min, Pain=0, Kristi=10, Powers=2 14:59:15 100 mcg NTG (IC) given in lab by Tarun Estrada in Right Groin via Intra-coronary. Ordered by Tarun Estrada. IV Solutions given in lab by Kenny Blanca RN in Left Antecubital via Peripheral IV. Pump/Dri p Flow = 200 ml/hr using 15:00:01 NaCl .9. Ordered by Tarun Estrada. 15:00:40 An CATHETER, SAUK-SUIATTLE EYE QAGAN TAYAGUNGIN IMAGING was advanced through the lesion. Images saved onto IVUS hard drive 15:01:53 IVUS in progress using CATHETER, SAUK-SUIATTLE EYE QAGAN TAYAGUNGIN IMAGING 15:01:54 IVUS catheter removed 15:02:25 100 mcg NTG (IC) given in lab by Tarun Estrada in Right Groin via Intra-coronary. Ordered by Tarun Estrada. 15:02:45 Wire removed 15:03:49 Catheter was removed 15:04:00 HR=64 bpm, UISQ=704/69 mmhg, SpO2=95.0 %, Resp=17 B/min, Pain=0, Kristi=10, Powers=2 15:05:57 An injection in the Fem Art (right) was made through the SHEATH, FR6.5 PRELUDE 11CM FR 6.5. 15:06:57 Catheter(s) removed without difficulty 15:09:09 STARCLOSE, VASCULAR CLOSER SYSTEM FR 6 placement in the Fem Art (right) 15:09:40 HR=60 bpm, NWAC=472/77 mmhg, SpO2=97.0 %, Resp=14 B/min, Pain=0, Kristi=10, Powers=2 15:10:46 ANGIOMAX COMPLETE 15:14:06 HR=55 bpm, HEZE=221/75 mmhg, SpO2=98.0 %, Resp=12 B/min, Pain=0, Kristi=10, Powers=2 15:15:25 Case End 15:19:11 HR=55 bpm, CFWZ=693/69 mmhg, SpO2=97.0 %, Resp=18 B/min, Pain=0, Kristi=10, Powers=2 15:20:21 Sterile dressing applied to site Assessment: Final Case, HR=55 BPM, RCJF=400/69 mmhg, Edema=None, Color=Normal, Skin = Warm, Dry Right Pulses: Oscar Ped=2, Femoral=2 15:21:38 Left Pulses: Oscar Ped=2, Femoral=2 Neurological: State=Alert, Ox3, VALENCIA Respiration: Resp=18 B/min, SpO2=97 % 15:22:13 Vitals capture stopped. 15:22:27 No case complications noted. 15:22:28 Cine recording checked. 15:22:31 Bedside Report will be given. 15:22:34 Implantable Device card placed in patient's chart. 15:22:39 A Left Heart Cath was performed. 15:22:44 Clinical correlaton risk stratification. 15:27:07 Patient moved to stretcher End Study - Contrast Media Used In Study Contrast Total Opened (mL) Total Used (mL) Total Wasted (mL) Omnipaque 225 225 0 End Study - Maximum Contrast Load Max Contrast Load (mL) 430.1 End Study - Radiation Exposure Fluoro Time (minutes) 23.8 End Study - Patient Disposition Complications Transferred To Interventional Outcome No Telemetry Bed successful
== END 2017-03-24 10:32 | disposition home or self-care (01) ==
LOC: HDOC 10:00 → HDIC 10:02 → HCIS 15:33 → HDOC 03-24 10:32
PROVIDERS: ATTEND Internal Medicine Interventional Cardiology
DX: I25.110 Atherosclerotic heart disease of native coronary artery with unstable angina pectoris (principal); I38 Endocarditis, valve unspecified; I10 Essential (primary) hypertension; E78.5 Hyperlipidemia, unspecified; E11.9 Type 2 diabetes mellitus without complications; Z01.818 Encounter for other preprocedural examination
CPT/HCPCS: 80048; 82550; 82948; 84132; 85002; 85025; 85610; 85730; 92928; 92933; 92978; 92979; 93005; 93458; C1714; C1725; C1753; C1760; C1769; C1874; C1887; C1893; G0269; J0583; J1200; J1644; J2250; J2405; J3010; J7030; 92934; Q9967

== ENCOUNTER → 2017-05-24 | Outpatient (CLI) | payer OTHER ==
[~2017-05-24] MED LIST changes: +AMLO5 PO; -AMLO5TAB96 PO; +ARTIDRO3 EACH EYE; +ASPI81CH CHEW; +BENI20TA5 PO; -BENI40TA30 PO; +METF500T PO; +METO25TA6 PO; +NITR0.4S SL; -OMEG100037 PO; +PRAS10TA PO; +ROSU40 PO; +VISI0.053 EACH EYE
[2017-05-24 08:43] LABS: ALT (GPT) 45 U/L (12-78); ANION GAP 9 MEQ/L (5-15); AST (GOT) 30 U/L (15-37); BICARBONATE 27.3 MEQ/L (21.0-32.0); BLOOD UREA NITROGEN 19 MG/DL (7-18); CHLORIDE 104 MEQ/L (98-107); GLOMERULAR FILTRATION RATE 59 ML/MIN (>89); GLUCOSE,FASTING 131 MG/DL (74-99); POTASSIUM 3.7 MEQ/L (3.5-5.1); SODIUM (NA) 140 MEQ/L (136-145)
[2017-05-24 08:46] LABS: ALKALINE PHOSPHATASE 76 U/L (45-117); CREATINE KINASE 132 U/L (39-308); LDL CHOLESTEROL 48 MG/DL (0-99); TOTAL BILIRUBIN ADULT 0.6 MG/DL (0.2-1.0)
== END ==
LOC: CLAB 08:01
PROVIDERS: ATTEND Internal Medicine Interventional Cardiology
DX: E78.2 Mixed hyperlipidemia (principal); I10 Essential (primary) hypertension; Z79.899 Other long term (current) drug therapy
CPT/HCPCS: 36415; 80053; 80061; 82550

== ENCOUNTER → 2017-06-09 | Outpatient (CLI) | payer OTHER ==
[2017-06-09 10:14] LABS: ANION GAP 6 MEQ/L (5-15); BICARBONATE 27.6 MEQ/L (21.0-32.0); BLOOD UREA NITROGEN 16 MG/DL (7-18); CHLORIDE 105 MEQ/L (98-107); GLOMERULAR FILTRATION RATE 62 ML/MIN (>89); GLUCOSE,FASTING 115 MG/DL (74-99); POTASSIUM 3.8 MEQ/L (3.5-5.1); SODIUM (NA) 139 MEQ/L (136-145)
[2017-06-09 16:33] LABS: HEMOGLOBIN A1a 0.8 %; HEMOGLOBIN A1b 2.2 %; HEMOGLOBIN Ao 83.7 %; HEMOGLOBIN LA1C 2.2 %; HEMOGLOBIN P3 4.2 %
== END ==
LOC: CLAB 08:44
PROVIDERS: ATTEND Internal Medicine Interventional Cardiology
DX: E11.65 Type 2 diabetes mellitus with hyperglycemia (principal); I10 Essential (primary) hypertension; Z79.899 Other long term (current) drug therapy
CPT/HCPCS: 36415; 80048; 83036

== ENCOUNTER → 2017-09-27 | Outpatient (CLI) | payer OTHER ==
[~2017-09-27] MED LIST changes: +ASPI-516 CHEW; -ASPI81CH CHEW; -BENI20TA5 PO; +METO1TAB42 PO; -METO25TA6 PO; +OLME1TAB PO; -ZOCO40TA PO
[2017-09-27 08:37] LABS: HEMATOCRIT 43.1 % (39.0-51.0); MEAN CELL VOLUME 80.7 FL (80.0-100.0); MEAN CORPUSCULAR HEMOGLOBIN 27.5 PG (27.0-34.0); MEAN CORPUSCULAR HGB CONC 34.1 % (32.0-36.0); PLATELET COUNT 285 TH/MM3 (150-450); RED BLOOD COUNT 5.34 MIL/MM3 (4.50-5.90); RED CELL DISTRIBUTION WIDTH 14.3 % (11.6-17.2); REVIEW FLAG FINAL; WHITE BLOOD COUNT 7.2 TH/MM3 (4.0-11.0)
[2017-09-27 09:01] LABS: ANION GAP 7 MEQ/L (5-15); AST (GOT) 19 U/L (15-37); BICARBONATE 28.5 MEQ/L (21.0-32.0); BLOOD UREA NITROGEN 19 MG/DL (7-18); CHLORIDE 103 MEQ/L (98-107); GLOMERULAR FILTRATION RATE 56 ML/MIN (>89); GLUCOSE,FASTING 104 MG/DL (74-99); SODIUM (NA) 138 MEQ/L (136-145)
[2017-09-27 09:05] LABS: ALKALINE PHOSPHATASE 79 U/L (45-117); ALT (GPT) 25 U/L (12-78); CREATINE KINASE 83 U/L (39-308); HDL CHOLESTEROL 53.1 MG/DL (40.0-60.0); LDL CHOLESTEROL 37 MG/DL (0-99); TOTAL BILIRUBIN ADULT 0.8 MG/DL (0.2-1.0)
[2017-09-27 16:25] LABS: HEMOGLOBIN A1b 2.2 %; HEMOGLOBIN Ao 82.6 %; HEMOGLOBIN LA1C 2.2 %; HEMOGLOBIN P3 4.4 %
== END ==
LOC: CLAB 08:18
DX: E78.5 Hyperlipidemia, unspecified (principal); E11.65 Type 2 diabetes mellitus with hyperglycemia; Z79.899 Other long term (current) drug therapy; Z12.5 Encounter for screening for malignant neoplasm of prostate
CPT/HCPCS: 36415; 80053; 80061; 82550; 83036; 84153; 85027

== ENCOUNTER → 2017-10-11 | Outpatient (CLI) | payer OTHER ==
[2017-10-11 10:18] LABS: BICARBONATE 30.8 MEQ/L (21.0-32.0); CALCIUM 9.3 MG/DL (8.5-10.1); CREATININE 1.22 MG/DL (0.60-1.30)
== END ==
LOC: CLAB 09:02
DX: E11.9 Type 2 diabetes mellitus without complications (principal)
CPT/HCPCS: 36415; 80048; 82043

== ENCOUNTER → 2017-10-18 | Outpatient (CLI) | payer OTHER ==
--- NOTE | 2017-10-18 13:10 | RADRPT ---
EXAM DATE/TIME: 10/18/2017 11:45 [place] COMPARISON: CT ABDOMEN & PELVIS W/O CONTRAST, February 25, 2016, 8:22. INDICATIONS : Chronic kidney disease, stage 2. MEDICAL HISTORY : Hypertension. Renal calculi. Hypercholesterolemia. Chronic kidney disease, stage 2. Cardiac disorder. Diabetes. Hyperlipdemia. SURGICAL HISTORY : Cardiac stents. ENCOUNTER: Initial ACUITY: 1 day PAIN SCORE: 0/10 LOCATION: Bilateral flank MEASUREMENTS: RIGHT KIDNEY: 13.1 x 5.2 x 5.0 cm LEFT KIDNEY: 11.1 x 4.4 x 5.4 cm FINDINGS: RIGHT KIDNEY: The renal cortex is normal thickness and echogenicity with well-maintained cortical medullary junctio n. There is a 2.7 cm cyst midpole cortex. LEFT KIDNEY: Renal cortex is normal thickness and echogenicity with well-maintained cortical medullary junction. T here are 2 cysts one midpole 1.2 and the other upper pole 3.2 cm in size. BLADDER: Within normal limits given the degree of distension. CONCLUSION: Bilateral renal simple cysts. Otherwise negative with no evidence of hydronephrosis. Renal cortex is normal thickness and echogenicity with well-maintained cortical medullary junctions. Jabari Higgins MD on October 18, 2017 at 12:13 Board Certified Radiologist. This report was verified electronically.
== END ==
LOC: HRAD 11:39
DX: N18.2 Chronic kidney disease, stage 2 (mild) (principal)
CPT/HCPCS: 76775

== ENCOUNTER → 2017-11-23 | Outpatient (CLI) | payer OTHER ==
[2017-11-23 09:47] LABS: BICARBONATE 26.7 MEQ/L (21.0-32.0); CALCIUM 8.9 MG/DL (8.5-10.1); CREATININE 1.16 MG/DL (0.60-1.30)
[2017-11-23 13:02] LABS: HEMOGLOBIN A1C 6.4 % (4.3-6.0)
== END ==
LOC: CLAB 08:32
DX: E78.5 Hyperlipidemia, unspecified (principal); I12.9 Hypertensive chronic kidney disease with stage 1 through stage 4 chronic kidney disease, or unspecified chronic kidney disease; E11.22 Type 2 diabetes mellitus with diabetic chronic kidney disease; E11.65 Type 2 diabetes mellitus with hyperglycemia; N18.3 Chronic kidney disease, stage 3 (moderate); Z79.899 Other long term (current) drug therapy
CPT/HCPCS: 36415; 80048; 83036

== ENCOUNTER → 2017-12-02 | Outpatient (CLI) | payer OTHER ==
[2017-12-02 12:02] LABS: BICARBONATE 28.5 MEQ/L (21.0-32.0); CALCIUM 9.2 MG/DL (8.5-10.1); CREATININE 1.34 MG/DL (0.60-1.30)
== END ==
LOC: CLAB 11:22
PROVIDERS: ATTEND Internal Medicine Endocrinology, Diabetes & Metabolism
DX: E11.65 Type 2 diabetes mellitus with hyperglycemia (principal)
CPT/HCPCS: 36415; 80048; 84378

== ENCOUNTER → 2017-12-19 | Outpatient (CLI) | payer OTHER ==
[2017-12-19 12:12] LABS: CALCIUM 8.8 MG/DL (8.5-10.1); CREATININE 1.2 MG/DL (0.60-1.30)
== END ==
LOC: CLAB 10:51
DX: E11.22 Type 2 diabetes mellitus with diabetic chronic kidney disease (principal); E11.65 Type 2 diabetes mellitus with hyperglycemia; N18.3 Chronic kidney disease, stage 3 (moderate)
CPT/HCPCS: 36415; 80048

== ENCOUNTER → 2018-02-13 | Outpatient (CLI) | payer OTHER ==
[2018-02-13 09:20] LABS: ALBUMIN 3.9 GM/DL (3.4-5.0)
[2018-02-13 09:23] LABS: CHOLESTEROL/ HDL RATIO 2.55 RATIO; DIRECT BILIRUBIN ADULT 0.2 MG/DL (0.0-0.2); HDL CHOLESTEROL 37.2 MG/DL (40.0-60.0); INDIRECT BILIRUBIN 0.3 MG/DL (0.0-0.8); TOTAL BILIRUBIN ADULT 0.5 MG/DL (0.2-1.0); TOTAL PROTEIN 7.4 GM/DL (6.4-8.2)
== END ==
LOC: CLAB 08:28
PROVIDERS: ATTEND Internal Medicine Interventional Cardiology
DX: E78.2 Mixed hyperlipidemia (principal); Z79.899 Other long term (current) drug therapy
CPT/HCPCS: 36415; 80061; 80076; 82550

== ENCOUNTER → 2018-03-02 | Outpatient (CLI) | payer OTHER ==
--- NOTE | 2018-03-02 14:19 | RADRPT ---
EXAM DATE: 03/02/2018 1:48 PM EDT AGE/SEX: 62 years / Male INDICATIONS: High risk for stenosis, family history. CLINICAL DATA: This is the patient's initial encounter. Patient reports that signs and symptoms have been present for 1 day and indicates a pain score of 0/10. MEDICAL/SURGICAL HISTORY: . Hypertension. Renal calculi. Hypercholesterolemia. Chronic kidney d isease, stage 2. Cardiac disorder. Diabetes. Hyperlipidemia. . Cardiac stents. COMPARISON: No prior [place] exams available for comparison. VELOCITY PARAMETERS: ICA/CCA Ratio: Right 0.9 , Left 1.2 ICA: Right 93.8 cm/sec, Left 72.7 cm/sec CCA: Right 86.4 cm/sec, Left 111 cm/sec ECA: Right 100 cm/sec, Left 88.2 cm/sec Vertebral: Right 46.6 cm/sec antegrade, Left 46.6 cm/sec antegrade FINDINGS: Right Carotid: No significant stenosis is visualized. The waveforms are within normal limits. Left Carotid: No significant stenosis is visualized. The waveforms are within normal limits. Other: None. CONCLUSION: 1. Right Internal Carotid Artery: No significant stenosis or atherosclerotic plaque is visualized. 2. Left Internal Carotid Artery: No significant stenosis or atherosclerotic plaque is visualized. Electronically signed by: Deondre Saul MD 03/02/2018 2:17 PM EDT
== END ==
LOC: HRAD 12:58
PROVIDERS: ATTEND Radiology Body Imaging
DX: Z09 Encounter for follow-up examination after completed treatment for conditions other than malignant neoplasm (principal); I12.9 Hypertensive chronic kidney disease with stage 1 through stage 4 chronic kidney disease, or unspecified chronic kidney disease; N18.9 Chronic kidney disease, unspecified; E11.9 Type 2 diabetes mellitus without complications; Z95.5 Presence of coronary angioplasty implant and graft
CPT/HCPCS: 93880

== ENCOUNTER → 2018-03-28 | Outpatient (CLI) | payer OTHER ==
[2018-03-28 10:42] LABS: AUTOMATED NEUTROPHIL # 4.2 TH/MM3 (1.8-7.7); BASOPHIL % 0.3 % (0.0-2.0); EOSINOPHIL # 0.3 TH/MM3 (0-0.4); EOSINOPHIL % 4.9 % (0.0-4.0); HEMATOCRIT 41.7 % (39.0-51.0); LYMPH % 23.5 % (9.0-44.0); LYMPHOCYTE # 1.5 TH/MM3 (1.0-4.8); MEAN CELL VOLUME 81.1 FL (80.0-100.0); MEAN CORPUSCULAR HEMOGLOBIN 27.2 PG (27.0-34.0); MEAN CORPUSCULAR HGB CONC 33.6 % (32.0-36.0); MEAN PLATELET VOLUME 8.2 FL (7.0-11.0); MONO % 6.2 % (0.0-8.0); MONOCYTE # 0.4 TH/MM3 (0-0.9); NEUT % 65.1 % (16.0-70.0); PLATELET COUNT 263 TH/MM3 (150-450); RED BLOOD COUNT 5.14 MIL/MM3 (4.50-5.90); RED CELL DISTRIBUTION WIDTH 14.6 % (11.6-17.2); WHITE BLOOD COUNT 6.4 TH/MM3 (4.0-11.0)
[2018-03-28 11:09] LABS: ALBUMIN 3.9 GM/DL (3.4-5.0); ALT (GPT) 22 U/L (12-78); AST (GOT) 18 U/L (15-37); BICARBONATE 29.3 MEQ/L (21.0-32.0); BLOOD UREA NITROGEN 17 MG/DL (7-18); CALCIUM 8.6 MG/DL (8.5-10.1); CHLORIDE 103 MEQ/L (98-107); CHOLESTEROL 113 MG/DL (120-200); CREATININE 1.08 MG/DL (0.60-1.30); GLOMERULAR FILTRATION RATE 70 ML/MIN (>89); GLUCOSE,FASTING 88 MG/DL (74-99); SODIUM (NA) 139 MEQ/L (136-145); TRIGLYCERIDES 107 MG/DL (42-150)
[2018-03-28 11:11] LABS: ALKALINE PHOSPHATASE 67 U/L (45-117); CHOLESTEROL/ HDL RATIO 2.43 RATIO; HDL CHOLESTEROL 46.5 MG/DL (40.0-60.0); LDL CHOLESTEROL 45 MG/DL (0-99); TOTAL BILIRUBIN ADULT 0.7 MG/DL (0.2-1.0); TOTAL PROTEIN 7.4 GM/DL (6.4-8.2)
[2018-03-28 14:11] LABS: HEMOGLOBIN A1C 6.1 % (4.3-6.0)
== END ==
LOC: CLAB 08:59
PROVIDERS: ATTEND Internal Medicine Interventional Cardiology
DX: E78.2 Mixed hyperlipidemia (principal); I12.9 Hypertensive chronic kidney disease with stage 1 through stage 4 chronic kidney disease, or unspecified chronic kidney disease; E11.65 Type 2 diabetes mellitus with hyperglycemia; E11.22 Type 2 diabetes mellitus with diabetic chronic kidney disease; N18.2 Chronic kidney disease, stage 2 (mild); Z79.899 Other long term (current) drug therapy
CPT/HCPCS: 36415; 80053; 80061; 82043; 82550; 83036; 83970; 84165; 84378; 85025; 86021; 86038; 86335